=== PATIENT | male | born 1955 | race Caucasian/White ===

== ENCOUNTER 2019-03-01 23:50 | Emergency (ER) | payer OTHER ==
--- NOTE | 2019-03-02 00:12 | EDPHY ---
H & P Stated Complaint: epistaxis for 2 days Time Seen by Provider: 03/02/19 00:12 HPI/ROS: HPI CHIEF COMPLAINT: Intermittent bloody nose x2 days. HISTORY OF PRESENT ILLNESS: Patient otherwise healthy 63-year-old male presents emergency room with epistaxis out of his right Nare intermittently for the past 2 days. States initially started when he was doing something at home and hit himself in the nose developed a bloody nose. Resolved on its own. He then had 2 more episodes of trickling blood out of his right Nare. He Is not on any blood thinners. Denies vomiting blood. Epistaxis resolved prior to arrival. However is concerned about a recurrence. Past Medical History: Hypertension Past Surgical History: Denies significant surgical history Social History: Denies drugs alcohol tobacco Family History: Noncontributory ROS REVIEW OF SYSTEMS: 10 Systems were reviewed and negative with the exception of the elements mentioned in the history of present illness. Exam Constitutional triage nursing summary reviewed, vital signs reviewed, awake/ alert. Eyes normal conjunctivae and sclera, EOMI, PERRLA. HENT Right Nare: Dry dark purple blood in right nare. Left nare normal. normal inspection, atraumatic, moist mucus membranes, no epistaxis, neck supple / no meningismus, no raccoon eyes. Respiratory clear to auscultation bilaterally, normal breath sounds, no respiratory distress, no wheezing. Cardiovascular rate normal, regular rhythm, no murmur, no edema, distal pulses normal. Gastrointestinal soft, non-tender, no rebound, no guarding, normal bowel sounds, no distension, no pulsatile mass. Genitourinary no CVA tenderness. Musculoskeletal no midline vertebral tenderness, full range of motion, no calf swelling, no tenderness of extremities, no meningismus, good pulses, neurovascularly intact. Skin pink, warm, & dry, no rash, skin atraumatic. Neurologic awake, alert and oriented x 3, AAOx3, moves all 4 extremities equally, motor intact, sensory intact, CN II-XII intact, normal cerebellar, normal vision, normal speech. Psychiatric normal mood/affect. Heme/Lymph/Immune no lymphadenopathy. Differential Diagnosis: Includes but is not limited to in a particular order epistaxis, anterior epistaxis, posterior epistaxis Medical Decision Making: Plan for this patient I gave him treatment options including packing, cauterization, Afrin spray with clamp and re-evaluation. He would like to not do the packing or cauterization he would like to have Afrin applied. And nasal clamp applied. And re-evaluate. Re-evaluation: 0129: Patient re-evaluated this time has no further evidence of nose bleeds. He received nasal clamp in Afrin. Declined packing or cauterization. The patient like to go home. ENT referral given. Recommend returning to the emergency room if develops any worsening symptoms including further nose bleeding, fever, vomiting, not doing well He understands to apply nasal cramp, direct pressure for 20-30 min, head forward , return if worse. Source: Patient - Personal History Current Tetanus/Diphtheria Vaccine: Yes Current Tetanus Diphtheria and Acellular Pertussis (TDAP): Yes - Medical/Surgical History Hx Asthma: No Hx Chronic Respiratory Disease: No Hx Diabetes: No Hx Cardiac Disease: No Hx Renal Disease: No Hx Cirrhosis: No Hx Alcoholism: No Hx HIV/AIDS: No Hx Splenectomy or Spleen Trauma: No Other PMH: HTN, tonsillectomy, bilat knee and feet surgery - Social History Smoking Status: Never smoked Constitutional: Initial Vital Signs Temperature (C) 36.7 C 03/01/19 23:51 Heart Rate 122 H 03/01/19 23:51 Respiratory Rate 18 03/01/19 23:51 Blood Pressure 166/94 H 03/01/19 23:51 O2 Sat (%) 98 03/01/19 23:51 O2 Delivery Mode Room Air Allergies/Adverse Reactions: No Known Allergies Allergy (Unverified 03/01/19 23:55) Home Medications: Medication Instructions Recorded Lisinopril 03/01/19 Water Pill 03/01/19 Medical Decision Making - Data Points Medications Given: Discontinued Medications Oxymetazoline HCl (Afrin Nasal [place]) 2 sprays EACHNARE EDNOW ONE Stop: 03/02/19 00:21 Last Admin: 03/02/19 00:23 Dose: 2 spray Departure - Departure Disposition: Home, Routine, Self-Care Clinical Impression: Epistaxis Condition: Good Instructions: Nosebleed (ED) Additional Instructions: 1. Return emergency room if you have further bleeding 2. Apply direct pressure for 20 to 30 min. 3. Follow up with ENT. Referrals: NONE *PRIMARY CARE P,. [Primary Care Provider] - As per Instructions Omid Samaniego MD [Medical Doctor] - As per Instructions
[2019-03-02] MEDS ORDERED: OXYMETAZOLINE 30 ML NASAL SPRAY EACHNARE ONE (00:20)
[2019-03-02 01:34] VITALS: BP 147/90
== END 2019-03-02 01:35 | disposition home or self-care (01) ==
DX: R04.0 Epistaxis (principal); I10 Essential (primary) hypertension